=== PATIENT | male | born 1945 | race African-American/Black ===

== ENCOUNTER 2018-01-19 07:52 | Day surgery (SDC) | payer OTHER ==
[~2018-01-19] VITALS: Ht 172.7 cm; Wt 62.6 kg
[~2018-01-19 07:52] MED LIST: METO-539 PO
[2018-01-19] MEDS ORDERED: LACTATED RINGERS 750 ML IV SCH (09:00)
[2018-01-19] MEDS ORDERED: CEFAZOLIN SODIUM 1000MG/VIAL ONE (10:09)
[2018-01-19] MEDS ORDERED: PROPOFOL 200MG/20ML VIAL IV ONE ×2 (10:10→10:23)
[2018-01-19] MEDS ORDERED: METOCLOPRAMIDE HCL 10MG/2ML VIAL ONE (10:10)
[2018-01-19] MEDS ORDERED: ONDANSETRON HCL 4MG/2ML VIAL ONE (10:10)
[2018-01-19] MEDS ORDERED: LIDOCAINE HCL/PF 1% 10 MG/ML 5ML VIAL ONE (10:11)
== END 2018-01-19 12:15 | disposition home or self-care (01) ==
LOC: OR 07:52
PROVIDERS: ATTEND Internal Medicine Gastroenterology
DX: K22.2 Esophageal obstruction (principal); F10.10 Alcohol abuse, uncomplicated; Z93.0 Tracheostomy status; Z93.1 Gastrostomy status; Z85.21 Personal history of malignant neoplasm of larynx
CPT/HCPCS: 43249; J0690; J2405; J2765; J3490; J7120; J2704